=== PATIENT | female | born 1975 | race Caucasian/White ===

== ENCOUNTER 2019-01-13 13:58 | Emergency (ER) | payer OTHER ==
[2019-01-13 14:06] VITALS: BP 164/104; PULSE 95; TEMP 98.1; BMI 39.0
--- NOTE | 2019-01-13 14:11 | PDOC ---
Attending Attestation - Resident Resident Name: Nish Gracia - ED Attending Attestation I have performed the following: I have examined & evaluated the patient, The case was reviewed & discussed with the resident, I agree w/resident's findings & plan, Exceptions are as noted - HPI HPI: 01/13/19 14:09 43-year-old female no past medical history here today for concerns for possible retained tampon. Patient states that she had her last day of her menstrual cycle 2 days prior states that she woke up in the middle night with the bathroom was uncertain if she may have removed a tampon or not she denies any fevers or chills no follow odor no discharge no dysuria no other current complaints - Physicial Exam PE: 01/13/19 14:09 Awake alert no acute distress lungs are clear bilaterally heart is regular no murmurs rubs or gallops abdomen is soft and nontender pelvic exam performedScant old blood in the vaginal vault no visualized foreign body no foreign body felt on bimanual exam negative CMT no adnexal tenderness 01/13/19 14:24 - Medical Decision Making 01/13/19 14:09 43-year-old female with questionable retained tampon. Pelvic exam Negative for any retained foreign bodyf.discharged home 01/13/19 14:24
--- NOTE | 2019-01-13 14:12 | PDOC ---
History of Present Illness - General Chief Complaint: Foreign Body (FB) Stated Complaint: FB Time Seen by Provider: 01/13/19 14:00 - History of Present Illness Initial Comments: Ms. Turner is a 43 yo female with no significant PMH presenting today with concern for retained tampon. Reports that she placed a tampon on Monday on the last day of her menstrual cycle. She does not remember if she took it out or not in the middle of the night to urinate. Tried digging through the trash and was not able to find it. No other complaints. Denies headache/dizziness/fever/chest pain/shortness of breath. Denies dysuria or hematuria. Denies vaginal bleeding or discharge or pain. Denies abdominal pain. Past History - Past Medical History Allergies/Adverse Reactions: Allergies Allergy/AdvReac Type Severity Reaction Status Date / Time No Known Allergies Allergy Verified 01/13/19 13:59 Home Medications: Ambulatory Orders Hydroxychloroquine Sulfate [Plaquenil] 200 mg PO DAILY 01/13/19 NK [No Known Home Medication] 01/13/19 Ranitidine HCl 150 mg PO DAILY 01/13/19 COPD: No - Psycho Social/Smoking Cessation Hx Smoking History: Never smoked Have you smoked in the past 12 months: No Information on smoking cessation initiated: No Hx Alcohol Use: No Drug/Substance Use Hx: No Review of Systems - Review of Systems Comments:: ROS GENERAL/CONSTITUTIONAL: No fever or chills. No weakness._ HEAD, EYES, EARS, NOSE AND THROAT: No change in vision. No change in hearing. No sore throat._ CARDIOVASCULAR: No chest pain or shortness of breath_ RESPIRATORY: Denies cough, hemoptysis_ GASTROINTESTINAL: No nausea, vomiting, diarrhea or constipation._ GENITOURINARY: No dysuria, frequency, or change in urination. Reports mild vaginal pressure. MUSCULOSKELETAL: No joint or muscle swelling or pain. No neck or back pain._ SKIN: No rash_ NEUROLOGIC: No headache, vertigo, loss of consciousness, or change in strength/ sensation._ *Physical Exam - Vital Signs Last Vital Signs Temp Pulse Resp BP Pulse Ox 98.1 F 95 H 20 164/104 H 100 01/13/19 13:58 01/13/19 13:58 01/13/19 13:58 01/13/19 13:58 01/13/19 13:58 - Physical Exam Comments: GENERAL: Awake, alert, and oriented to person/place/time, in no acute distress_ LUNGS: No distress, speaks in full sentences, clear to auscultation bilaterally _ HEART: Regular rate and rhythm, normal S1 and S2, no murmurs appreciated, peripheral pulses normal and equal bilaterally._ ABDOMEN: Soft, nontender, normoactive bowel sounds. No guarding, no rebound. No masses_ EXTREMITIES: Normal inspection, Normal range of motion, no edema. No clubbing or cyanosis_ NEUROLOGICAL: Cranial nerves II through XII grossly intact. Normal speech, normal gait, no focal sensorimotor deficits _ SKIN: Warm, Dry, normal turgor, no rashes or lesions noted_. PELVIC: External exam shows no rash, lesions, ulcers. Mild bloody discharge in the posterior fornix, no obvious bleeding. Os closed. No foreign body appreciated. No CMT. No adnexal tenderness bilaterally. Medical Decision Making - Medical Decision Making 43F presenting with concern for retained tampon. no fever, no chills, no vaginal bleeding/discharge. no dysuria. 01/13/19 14:24 Pelvic exam does not show any retained foreign body. Plan to d/c home, return if worse. Discharge - Discharge Information Problems reviewed: Yes Clinical Impression/Diagnosis: Normal pelvic exam Condition: Stable Disposition: HOME - Admission No - Follow up/Referral - Patient Discharge Instructions Additional Instructions: If you experience any new, worsening, or concerning symptoms, including continued pain, vaginal bleeding or discharge, fever, chills, or any other concerns, please return to the emergency department. - Post Discharge Activity
== END 2019-01-13 14:27 | disposition home or self-care (01) ==
LOC: FER 13:58
DX: Z03.89 Encounter for observation for other suspected diseases and conditions ruled out (principal)
CPT/HCPCS: 99281-25